=== PATIENT | male | born 1990 | race Caucasian/White ===

== ENCOUNTER 2024-01-30 21:27 | Emergency (ER) | payer OTHER ==
[~2024-01-30] VITALS: Ht 177.8 cm; Wt 108.9 kg
[~2024-01-30 21:27] MED LIST: DOCU-299 PO; HYDR-2734 RC
[2024-01-30 21:32] VITALS: BP 160/106; PULSE 78; RESP 20; TEMP 97.9; O2SAT 99
== END 2024-01-31 00:27 | disposition left against medical advice (07) ==
LOC: MED 21:27
DX: H57.89 Other specified disorders of eye and adnexa (principal); Z53.21 Procedure and treatment not carried out due to patient leaving prior to being seen by health care provider